=== PATIENT | female | born 1960 | race Caucasian/White ===

== ENCOUNTER → 2021-06-13 | Outpatient (CLI) | payer OTHER | LOC: US 08:35 | PROVIDERS: ATTEND Family Medicine | DX: R10.84 Generalized abdominal pain (principal); R74.8 Abnormal levels of other serum enzymes | CPT/HCPCS: 76700; 76856 ==

== ENCOUNTER → 2022-07-12 | Outpatient (CLI) | payer OTHER | LOC: RAD 09:39 | PROVIDERS: ATTEND Family Medicine | DX: M79.632 Pain in left forearm (principal) ==